=== PATIENT | female | born 1935 | race Caucasian/White ===

== ENCOUNTER → 2017-10-31 | Outpatient (CLI) | payer MEDICARE ==
[~2017-10-31] MED LIST: DENO60P SQ; DICL75 PO; ROBA750T3 PO; TAB-TAB PO
--- NOTE | 2017-11-01 10:09 | RSPPFT ---
DATE OF PROCEDURE: 10/31/17 COMMENTS: VOLUMES DYNAMIC: FVC and FEV1 normal. STATIC: FRC, RV and TLC normal. FLOWS: FEV1% and FEF 25-75 normal. DIFFUSION: Normal. FLOW VOLUME LOOP: Normal configuration. IMPRESSION: Normal pulmonary functions. No significant airways obstruction or restriction and normal diffusion capacity.
== END ==
LOC: HRSP 13:07
DX: I48.0 Paroxysmal atrial fibrillation (principal); Z79.899 Other long term (current) drug therapy
CPT/HCPCS: 94060; 94726; 94729

== ENCOUNTER 2018-01-31 11:22 | Day surgery (SDC) | payer MEDICARE ==
[2018-01-31] MEDS ORDERED: CHLORHEXIDINE GLUCONATE 2 % 1 PACK (2 CLOTHS) TOPICAL PRN (12:00)
[2018-01-31] MEDS ORDERED: METOPROLOL TARTRATE 25 MG TAB PO PRN (12:00)
[2018-01-31] MEDS ORDERED: LACTATED RINGER'S 1000 ML IV PRN (12:00)
[2018-01-31] MEDS ORDERED: POVIDONE IODINE 5% (ANTISEPSIS KIT) 4 APPLICATIONS EACH NARE PRN (12:00)
[2018-01-31] MEDS ORDERED: SODIUM CHLORID 0.9% 500 ML IV PRN (12:00)
[2018-01-31] MEDS ORDERED: VITA100018 PO (12:09)
[2018-01-31] MEDS ORDERED: APIX2.5T PO (12:09)
[2018-01-31] MEDS ORDERED: LEVO50TA4 PO (12:09)
[2018-01-31] MEDS ORDERED: SACC1CAP3 PO (12:09)
[2018-01-31] MEDS ORDERED: MAGN500T2 PO (12:09)
[2018-01-31] MEDS ORDERED: DAILTAB43 (12:09)
[2018-01-31] MEDS ORDERED: VITA250T3 PO (12:09)
[2018-01-31] MEDS ORDERED: ALPR.25 PO (12:09)
[2018-01-31] MEDS ORDERED: COQ-30CA2 (12:09)
[2018-01-31] MEDS ORDERED: VITA200C3 PO (12:09)
[2018-01-31] MEDS ORDERED: CYAN100025 SL (12:09)
[2018-01-31] MEDS ORDERED: AMIO200T PO (12:09)
--- NOTE | 2018-01-31 14:18 | CF ---
cc: Emanuel Holden MD,Tyra MCLAUGHLIN DATE: 01/31/2018 DATE OF PROCEDURE: 01/31/2018 INDICATIONS FOR PROCEDURE: Mitral regurgitation. CONSENT: Full informed consent was obtained for procedure. Risks of , bleeding, myocardial infarction, perforation, aspiration, cardiac arrest endocarditis, foreseen and unforeseen complications were reviewed. The patient fully appeared to understand the risks. PROCEDURE DETAILS The patient was draped and prepped in the usual manner. A full AYAH was performed. FINDINGS: There is evidence of moderate to severe eccentric mitral regurgitation with what appears to be a mildly flail anterior leaflet. LV function was normal. There was evidence of biatrial enlargement. The RV function was normal. CONCLUSION: No evidence of aortic dissection. Mild descending aorta atherosclerosis, normal LV function, moderate to severe mitral regurgitation with eccentric mitral jet with what appears to be a partially flail leaflet, mild to moderate aortic regurgitation, normal LV function, biatrial enlargement. MD MERVAT Petersen/EDUARD , 02:03 PM , 02:17 PM
--- NOTE | 2018-02-01 14:20 | EKG ---
Date Performed: 01/31/2018 Time Performed: 12:14:18 PTAGE: 82 years EKG: Sinus bradycardia. Normal ECG except for rate Since the PREVIOUS TRACING , no significant change noted PREVIOUS TRACIN06/03/2004 12.10 DOCTOR: Joann Fink Interpretating Date/Time 02/01/2018 14:17:10
== END 2018-01-31 15:26 | disposition home or self-care (01) ==
LOC: HSDC 11:22 → HDIC 11:22 → HSDC 15:26
PROVIDERS: ATTEND Internal Medicine Cardiovascular Disease
DX: I34.0 Nonrheumatic mitral (valve) insufficiency (principal)
CPT/HCPCS: 93005; 93312; 93320; 93325

== ENCOUNTER 2018-03-16 10:48 | Day surgery (SDC) | payer MEDICARE ==
[~2018-03-16] VITALS: Ht 157.5 cm; Wt 48.3 kg
[~2018-03-16 10:48] MED LIST changes: +ALPR.25 PO; +AMIO200T PO; +APIX2.5T PO; +COQ-30CA2; +CYAN100025 SL; +DAILTAB43; -DENO60P SQ; -DICL75 PO; +LEVO50TA4 PO; +MAGN500T2 PO; -ROBA750T3 PO; +SACC1CAP3 PO; -TAB-TAB PO; +VITA100018 PO; +VITA200C3 PO; +VITA250T3 PO
[2018-03-16] MEDS ORDERED: IOHEXOL 350 MG/ML 100 ML BTL (for Cath Lab) OTHER ONE (10:49)
[2018-03-16] MEDS ORDERED: NS 1000P @30 MLS/HR (KVO) IV SCH (11:15)
[2018-03-16 11:22] VITALS: BP 169/80; PULSE 64; RESP 18; TEMP 97.8; O2SAT 97
[2018-03-16] MEDS ORDERED: SODIUM CHLOR 0.9% 1000 ML INJ 1,000 ML IV SCH (11:25)
[2018-03-16] MEDS ORDERED: ASPIRIN 325 MG TAB PO SCH (11:30)
[2018-03-16 11:31] LABS: AUTOMATED NEUTROPHIL # 4.7 TH/MM3 (1.8-7.7); BASOPHIL # 0.1 TH/MM3 (0-0.2); BASOPHIL % 1.2 % (0.0-2.0); EOSINOPHIL # 0.3 TH/MM3 (0-0.4); EOSINOPHIL % 4.1 % (0.0-4.0); HEMATOCRIT 29.1 % (35.0-46.0); HEMOGLOBIN 9.2 GM/DL (11.6-15.3); LYMPH % 19.4 % (9.0-44.0); LYMPHOCYTE # 1.4 TH/MM3 (1.0-4.8); MEAN CELL VOLUME 55.8 FL (80.0-100.0); MEAN CORPUSCULAR HEMOGLOBIN 17.5 PG (27.0-34.0); MEAN CORPUSCULAR HGB CONC 31.5 % (32.0-36.0); MEAN PLATELET VOLUME 8.6 FL (7.0-11.0); MONO % 11.1 % (0.0-8.0); MONOCYTE # 0.8 TH/MM3 (0-0.9); NEUT % 64.2 % (16.0-70.0); PLATELET COUNT 381 TH/MM3 (150-450); RED BLOOD COUNT 5.22 MIL/MM3 (4.00-5.30); RED CELL DISTRIBUTION WIDTH 17.1 % (11.6-17.2); WHITE BLOOD COUNT 7.4 TH/MM3 (4.0-11.0)
[2018-03-16 11:35] LABS: INTERNATIONAL NORMALIZED RATIO 1.1 RATIO; PROTHROMBIN TIME - PATIENT 11.2 SEC (9.8-11.6)
[2018-03-16 11:41] LABS: BICARBONATE 27.2 MEQ/L (21.0-32.0); CALCIUM 8.9 MG/DL (8.5-10.1); CREATININE 0.99 MG/DL (0.50-1.00)
[2018-03-16] MEDS ORDERED: ALPRAZolam 0.25 MG TAB PO ONE (11:45)
[2018-03-16] MEDS ORDERED: HEPARIN-NS/PF INJ 1,500 ML ONE (11:51)
[2018-03-16] MEDS ORDERED: MIDAZOLAM HCL 2 MG/2 ML VIAL ONE (12:46)
--- NOTE | 2018-03-16 14:14 | CATHPROC ---
[facility] HIS Report Study Information Study Number Admission Scheduled Start Study Start [id number] Mar 16 2018 10:48AM 03/16/2018 Mar 16 2018 12:23PM [place] Service Cardiac Catheterization Admit Source Facility Department Other [facility] - Accountant Bookkeeper Physician and Clinical Staff Initial Emanuel Mg Monument Masonwestley Bright RN, Manolo Monument MasonHattie Villarreal,ANJANA Recorder Sofia Praedes ,RT(R) Thais Farrar,RT(R) (BS) Procedures Performed Procedure Location (Site) Vessel Name Angiogram LV LV Ventricle Coronary Angiograms LCA Left Coronary Coronary Angiograms RCA Right Coronary L Heart Cath Wire insertion Fem Art (right) Femoral Art Equipment Time Computer Systems Technician Description Size Mfg Part Number Used/Scraped TRANSDUCER, TRUWAVE [id number] 12:24 [employer] * Used W/STOCKCOCK *[id number] INTRODUCER SET, 12:24 [employer] FR 5 [id number] *[id number] Used MICROPUNCTURE STIFF 538-476 *[id number] 538-420 *[id number] 538-417 *[id number] 538-453S *[id number] 12:24 [employer] BLANKET,WARM AIR CCL * Used *[id number] 12:24 [employer] PACK, CCL CUSTOM * Used *[id number] 12:24 [employer] PACER PEN, SKIN DUAL W/ RULER * Used *[id number] 12:24 [employer] WIRE, 3MMJ .035 180CM 180CM Used *[id number] PROBE COVER, STERILE [id number] 12:24 [employer] MEDICAL * Used ULTRASOUND W/ GEL *[id number] 12:24 NAMIC MANIFOLD, 4 PORT * Used *[id number] 12:24 [employer]ED OMNIPAQUE, 350 MG, 150ML 150ML [id number] Used [id number] 12:24 enrich-inUMO MEDICAL SHEATH, FR4 TERUMO (10CM) FR 4 Used *[id number] History: Current Medications Medication Dosage/Unit Route Frequency Last Date/Time Taken ASA ELIQUIS Synthroid History: Allergies Allergy Reaction No Known Allergies History: Risk Factors Family History of Hypertension Dyslipidemia Previous [place] Previous Heart Failure Premature CAD No No Yes No No Prior Valve Prior PCI Prior CABG Surgery No No No Cerebrovascular Peripheral Artery Chronic Lung On Dialysis Diabetes Disease Disease Disease No No No No No History: Stress Tests Stress or Imaging Studies Performed No History: Other Current Smoker No Labs Hgb (g/dl) Hct (%) WBC (l/cumm) Platelets (thousands) 11.60-17.00 35.00-51.00 4.00-11.00 150.00-450.00 9.2 29.1 7.4 381 Glucose (mg/dl) BUN (mg/dl) Creatinine (mg/dl) BUN:Creatinine (1:x) 74.00-106.00 7.00-18.00 0.50-1.30 10.00-20.00 87 18 0.9 20 Na (meq/l) K (meq/l) 136.00-145.00 3.50-5.10 137 3.8 INR (PTT:PT) 0.90-1.10 1.1 CPK-MB (ng/ML) 0.50-3.60 Not Drawn Medication Medication Total Dose (Bolus/Oral) Medication Total Dosage/Unit 1% XYLOCAINE 20 mL FENTANYL 100 mcg OXYGEN 2 l/min VERSED 2 mg Medications (Bolus/Oral) Medication Time Given Dosage/Unit Administered By Reason VERSED 03/16/2018 1:21:15 PM 1 mg Hesher, Hattie 1 mg VERSED given in lab by Hattie Rizvi RN via Peripheral IV. Ordered by Emanuel Holden. FENTANYL 03/16/2018 1:22:16 PM 25 mcg Hesher, Hattie 25 mcg FENTANYL given in lab by Hattie Rizvi RN via Peripheral IV. Ordered by Emanuel Holden. VERSED 03/16/2018 1:26:00 PM 1 mg Hesher, Hattie 1 mg VERSED given in lab by Hattie Rizvi RN via Peripheral IV. Ordered by Emanuel Holden. 1% XYLOCAINE 03/16/2018 1:32:06 PM 20 mL Emanuel Holden 20 mL 1% XYLOCAINE given in lab by Emanuel Holden in Right Groin via Subcutaneous. Ordered by Emanuel Wilkes. FENTANYL 03/16/2018 1:35:00 PM 50 mcg Hesher, Hattie 50 mcg FENTANYL given in lab by Hattie Rizvi RN via Peripheral IV. Ordered by Emanuel Holden. OXYGEN 03/16/2018 1:35:35 PM 2 l/min Hattie Rizvi 2 l/min OXYGEN given in lab by Hattie Rizvi RN via Nasal. Ordered by Emanuel Holden. FENTANYL 03/16/2018 1:40:00 PM 25 mcg Hattie Rizvi 25 mcg FENTANYL given in lab by Hattie Rizvi RN via Peripheral IV. Ordered by Emanuel Holden. Medication (Drip) Medication Time Given Dosage/Unit Concentration/Unit Diluent (ml) Solution IV Solutions 03/16/2018 12:37:36 PM 50 mL (IV) NaCl .9 Patient arrived on IV Solutions in Left Antecubital via Peripheral IV. Pump/Drip Flow using NaCl .9. Initial Case Assessment Cardiovascular HR Rhythm NIBP Chest Pain 64 sr 178/77 0 Edema Present Skin color Skin None Normal Warm Dry Circulatory - Right Pulses Dorsalis Pedis Femoral 2 2 Scale (0,1,2,3,4,d) Circulatory - Left Pulses Dorsalis Pedis Femoral 2 2 Scale (0,1,2,3,4,d) Circulatory - Lower Extremities Color Lower Right Color Lower Left Normal Normal Neurological State Oriented to time-place- Alert Moves all extremities person Respiration - General Respiration Rate SpO2 (%) (B/min) 9 100 Final Case Assessment Cardiovascular HR Rhythm NIBP Chest Pain 64 sr 178/77 0 Edema Present Skin color Skin None Normal Warm Dry Circulatory - Right Pulses Dorsalis Pedis Femoral 2 2 Scale (0,1,2,3,4,d) Circulatory - Left Pulses Dorsalis Pedis Femoral 2 2 Scale (0,1,2,3,4,d) Circulatory - Lower Extremities Color Lower Right Color Lower Left Normal Normal Neurological State Oriented to time-place- Alert Moves all extremities person Respiration - General Respiration Rate SpO2 (%) (B/min) 9 100 Chronological Log Time Study Chronological Log 12:35:18 Patient arrived via Bed. 12:35:18 Patient Name, D.O.B, / Armband Verified By R.N. 12:37:26 Consent signed by the physician and the patient and verified by the Accountant Bookkeeper staff. 12:37:27 Pre-op and post- op instructions given; patient acknowledges understanding of instructions. 12:37:28 Verbal Stimulation=2 Physical Stimulation=2 Airway=2 Respiration=2 TOTAL=8. (0=absent, 1=li mited, 2=present) 12:37:30 Patient has been NPO for More than 6Hrs. 12:37:33 Skin Breakdown- none per patient 12:37:33 Patient Warmer Placed on the Table. 12:37:35 Dinora Prominences Protected 12:37:36 A # 20 IV was noted in the Antecubital (left). Grade = 0 12:37:36 Patient arrived on IV Solutions in Left Antecubital via Peripheral IV. Pump/Drip Flow using NaCl .9. 12:37:37 History and physical on the chart or being dictated. Assessment: Initial Case, HR=64 BPM, Rhythm=sr, NWXK=483/77 mmhg, Chest Pain=0, Edema=None, Col or=Normal, Skin = Warm, Dry Right Pulses: Gregory Ped=2, Femoral=2 Left Pulses: Gregory Ped=2, Femoral=2 12:37:38 Lower Right Extremities: Color=Normal Lower Left Extremities: Color=Normal Neurological: State=Alert, Ox3, CLARK Respiration: Resp=9 B/min, AyS5=653 % Vitals capture started with the following parameters, Patient=Adult, Interval=5 min, Initial Pr flpvho=551 mmHg, 12:42:48 Deflation Rate=5 mmHg, Cuff placed on Left Arm 12:43:29 HR=62 bpm, XVIM=896/77 mmhg, SpO2=96.0 %, Resp=10 B/min, Pain=0, Deshaun=10, Duval=2 12:48:30 HR=60 bpm, MIXL=714/76 mmhg, BxK5=929.0 %, Resp=22 B/min, Pain=0, Deshaun=10, Duval=2 12:49:05 Bilateral groins prepped with 2% chlorhexidine, and draped after a 3 minute waiting time. 12:49:12 Reference ECG taken 12:53:27 HR=62 bpm, NXGC=911/77 mmhg, RmW6=815.0 %, Resp=11 B/min, Pain=0, Deshaun=10, Duval=2 12:54:19 paged 12:55:32 Pressure channel 1 zero failed. 12:56:21 Pressure channel 1 zeroed. 12:58:28 HR=59 bpm, ZETO=282/73 mmhg, SpO2=99.0 %, Resp=10 B/min, Pain=0, Deshaun=10, Duval=2 13:03:29 HR=58 bpm, QYAN=182/76 mmhg, SpO2=99.0 %, Resp=20 B/min, Pain=0, Deshaun=10, Duval=2 13:08:28 HR=57 bpm, QATI=058/72 mmhg, FrL4=068.0 %, Resp=10 B/min, Pain=0, Deshaun=10, Duval=2 13:13:29 HR=57 bpm, OKUP=898/74 mmhg, MqZ0=622.0 %, Resp=9 B/min, Pain=0, Deshaun=10, Duval=2 13:13:33 MD responded 13:18:28 HR=58 bpm, TAUM=098/74 mmhg, TxG6=898.0 %, Resp=7 B/min, Pain=0, Deshaun=10, Duval=2 13:21:03 MD arrived. 13:21:15 1 mg VERSED given in lab by Hattie Rizvi RN via Peripheral IV. Ordered by Jenelle Holden. 13:22:16 25 mcg FENTANYL given in lab by Hattie Rizvi RN via Peripheral IV. Ordered by Christiane Holden. 13:23:29 HR=58 bpm, QWBB=446/74 mmhg, UxX6=714.0 %, Resp=11 B/min, Pain=0, Edshaun=10, Duval=2 13:26:00 1 mg VERSED given in lab by Hattie Rizvi RN via Peripheral IV. Ordered by Jenelle Holden. 13:28:30 HR=60 bpm, QTSW=201/73 mmhg, SpO2=92.0 %, Resp=3 B/min, Pain=0, Deshaun=10, Duval=2 Time Out. Correct patient, correct procedure, correct physician, labs, allergies, and equipment verified with labor trainer 13:29:58 team present. Fire risk assesment completed (see hard stop sheet for coding). Time Out Conc urred by and individual staff in procedure. 13:30:35 Case Start 20 mL 1% XYLOCAINE given in lab by Emanuel Holden in Right Groin via Subcutaneous. Ordered by Adina 13:32:06 Emanuel. 13:33:29 HR=59 bpm, EDWC=093/73 mmhg, SpO2=98.0 %, Resp=13 B/min, Pain=0, Deshaun=10, Duval=2 13:33:42 Access site was Right Femoral Artery. 13:33:59 A wire was inserted via Fem Art (right). A INTRODUCER SET, MICROPUNCTURE STIFF FR 5 was advanced into the Fem Art (right) using the Perc utaneous 13:34:01 technique. A SHEATH, FR4 TERUMO (10CM) FR 4 was exchanged in the Fem Art (right). This was necessary in or dale to 13:34:08 accomodate a larger catheter. 13:35:00 50 mcg FENTANYL given in lab by Hattie Rizvi RN via Peripheral IV. Ordered by Christiane Holden. A JL 4.0 INFINITI CATHETER FR 4 was advanced over a wire. OMNIPAQUE, 350 MG, 150ML 150ML was us ed for 13:35:06 injections. 13:35:35 2 l/min OXYGEN given in lab by Hattie Rizvi RN via Nasal. Ordered by Emanuel Holden. Recorded Pressure: Ao, HR=58, Condition=Condition 1 13:36:23 (Aorta) Ao 156/63/101 13:36:56 The LCA was injected and visualized at various angles. OMNIPAQUE, 350 MG, 150ML 150ML used . 13:38:30 HR=56 bpm, ULIA=268/65 mmhg, KmN4=823.0 %, Resp=7 B/min, Pain=0, Deshaun=10, Duval=2 13:38:53 Catheter was removed 13:40:00 25 mcg FENTANYL given in lab by Hattie Rizvi RN via Peripheral IV. Ordered by Christiane Holden. A 3DRC INFINITI CATHETER FR 4 was advanced over a wire. OMNIPAQUE, 350 MG, 150ML 150ML was used for 13:40:01 injections. 13:40:43 The RCA was injected and visualized at various angles. OMNIPAQUE, 350 MG, 150ML 150ML used . 13:41:20 Catheter was removed A JL 4.5 INFINITI CATHETER FR 4 was advanced over a wire. OMNIPAQUE, 350 MG, 150ML 150ML was us ed for 13:41:34 injections. 13:43:22 Catheter was removed 13:43:34 HR=60 bpm, MBDF=906/59 mmhg, XfI5=438.0 %, Resp=9 B/min, Pain=0, Deshaun=10, Duval=2 A PIGTAIL ANG. INFINITI CATHETER FR 4 was advanced over a wire. OMNIPAQUE, 350 MG, 150ML 150ML was used 13:44:54 for injections. Recorded Pressure: LV, HR=70, Condition=Condition 1 13:46:24 (Left Ventricle) LV 191/88/93 13:47:28 The LV was injected at 8 cc/sec for a total of 32. OMNIPAQUE, 350 MG, 150ML 150ML used. 13:48:30 HR=63 bpm, WUPK=583/63 mmhg, KdK5=565.0 %, Resp=8 B/min, Pain=0, Deshaun=10, Duval=2 Recorded Pressure: LV, Ao, HR=68, Condition=Condition 1 13:48:40 (Left Ventricle) LV 162/10/19, (Aorta) Ao 156/60/101 13:49:16 Catheter was removed 13:49:20 Case End (Physician broke scrub) Assessment: Final Case, HR=64 BPM, Rhythm=sr, TYLA=624/77 mmhg, Chest Pain=0, Edema=None, Color =Normal, Skin = Warm, Dry Right Pulses: Gregory Ped=2, Femoral=2 Left Pulses: Gregory Ped=2, Femoral=2 13:49:29 Lower Right Extremities: Color=Normal Lower Left Extremities: Color=Normal Neurological: State=Alert, Ox3, CLARK Respiration: Resp=9 B/min, SrO8=383 % 13:49:46 Catheter(s) removed without difficulty 13:50:12 No case complications noted. 13:50:16 Cine recording checked. 13:50:17 Bedside Report will be given. 13:50:21 A Left Heart Cath was performed. 13:52:22 Sheath removed; pressure applied to access site. 13:53:25 HR=60 bpm, EUJG=056/76 mmhg, HrX8=850.0 %, Resp=16 B/min 13:59:12 HR=59 bpm, CXLT=356/72 mmhg, CkZ5=131.0 %, Resp=10 B/min 14:04:17 HR=57 bpm, XWIA=035/71 mmhg, DcG0=377.0 %, Resp=16 B/min 14:08:33 HR=58 bpm, LKYG=421/75 mmhg, SpO2=98.0 %, Resp=17 B/min 14:13:35 Patient moved to stretcher End Study - Contrast Media Used In Study Contrast Total Opened (mL) Total Used (mL) Total Wasted (mL) Omnipaque 65 65 0 End Study - Maximum Contrast Load Max Contrast Load (mL) 122.0 End Study - Radiation Exposure Fluoro Time (minutes) 4.0 End Study - Sheaths Sheaths Pulled By Sheath Hold Time (min) Thais Walters 15 End Study - Patient Disposition Complications Transferred To Interventional Outcome No Telemetry Bed No attempt made
--- NOTE | 2018-03-16 14:52 | MA ---
cc: Emanuel Holden MD, Laura MD DATE: 03/16/2018 INDICATIONS FOR PROCEDURE: Mitral regurgitation. CONSENT: Fully informed consent was obtained prior to the procedure. The risks of , bleeding, myocardial infarction, perforation, aspiration, foreseen and unforeseen complications were reviewed. The patient appeared to fully understand the risks. PROCEDURES: 1. Left heart catheterization. 2. Sedation with Versed and fentanyl. PROCEDURAL STATEMENTS: The patient was draped and prepped in the usual manner. The right femoral artery was entered using a micropuncture technique with ultrasound. Via the 4-[place] sheath, left and right coronary catheters were used to intubate the left and right coronaries, pigtail catheter to intubate the left ventricle. Multiple angiographic views were carried out. At the end of the catheterization procedure, all catheters and sheaths were removed. Manual pressure was applied until hemostasis was achieved and the patient transferred to her room in stable condition. FINDINGS: I. HEMODYNAMICS: The aortic pressure was 156/60 with a mean of 101. The left ventricular pressure was 162 with a left ventricular end-diastolic pressure of 19. There was no evidence of a significant gradient on pullback across the LV outflow tract and aortic valve. II. LEFT VENTRICULOGRAM: The overall left ventricular ejection fraction was 60%. There was evidence of severe mitral regurgitation of about 4+. III. CORONARY ARTERIES: The left main was large and free of significant disease. The left anterior descending artery was a large vessel. The first intermediate ramus vessel was medium. The second intermediate ramus vessel was small. The circumflex artery was a large artery and was free of significant disease with a large first obtuse marginal branch. The right coronary artery was a large vessel with a large posterior descending artery and was free of significant disease CONCLUSION: 1. Normal left ventricular function. 2. Severe mitral regurgitation. 3. No significant coronary artery disease. PLAN: Mitral valve repair. MD MERVAT Petersen/RUBI , 02:01 PM , 02:51 PM
--- NOTE | 2018-03-17 13:00 | EKG ---
Date Performed: 03/16/2018 Time Performed: 11:22:26 PTAGE: 83 years EKG: Sinus bradycardia. Septal T wave changes are nonspecific Borderline ECG PREVIOUS TRACING : 01/31/2018 12.14 Since the previous tracing, no significant change noted DOCTOR: Chase Monahan Interpretating Date/Time 03/17/2018 12:56:06
== END 2018-03-16 18:10 | disposition home or self-care (01) ==
LOC: HDOC 10:48 → HDIC 10:49 → HDOC 18:10
PROVIDERS: ATTEND Internal Medicine Cardiovascular Disease
DX: I34.0 Nonrheumatic mitral (valve) insufficiency (principal); I48.91 Unspecified atrial fibrillation; R01.1 Cardiac murmur, unspecified; I35.1 Nonrheumatic aortic (valve) insufficiency; E03.9 Hypothyroidism, unspecified; F41.9 Anxiety disorder, unspecified; D56.9 Thalassemia, unspecified; I65.29 Occlusion and stenosis of unspecified carotid artery; Z01.818 Encounter for other preprocedural examination
CPT/HCPCS: 80048; 85025; 85610; 85730; 93005; 93458; 99152; 99153; C1769; C1893; J1644; J2250; J3010; Q9967